=== PATIENT | male | born 1950 | race Caucasian/White ===

== ENCOUNTER 2018-02-03 21:24 | Emergency (ER) | payer OTHER ==
[2018-02-03] MEDS ORDERED: ACETAMINOPHEN 500 MG TAB ONE (21:36)
[2018-02-03] MEDS ORDERED: CETIRIZINE HCL 5 MG TABLET ONE (22:56)
[2018-02-03] MEDS ORDERED: ALBUTEROL 2.5 MG/3 ML NEB SOL ONE (22:56)
[2018-02-03] MEDS ORDERED: IPRATROPIUM BROM 0.5MG/2.5ML ONE (22:57)
[2018-02-04] MEDS ORDERED: IPRATROPIUM BROM 0.5MG/2.5ML ONE (00:04)
[2018-02-04] MEDS ORDERED: IBUPROFEN 400 MG TAB ONE (00:04)
[2018-02-04] MEDS ORDERED: ALBUTEROL 2.5 MG/3 ML NEB SOL ONE (00:04)
[2018-02-04] MEDS ORDERED: AZITHROMYCIN 250 MG TAB ONE (00:04)
[2018-02-04] MEDS ORDERED: CEFTRIAXONE/SWI 1gm 1 GM/10 ML SYR ONE (00:05)
[2018-02-04] MEDS ORDERED: predniSONE 20 MG TAB ONE (00:05)
[2018-02-04] MEDS ORDERED: NA CHLORIDE 0.9% 1,000 ML ONE ×2 (00:05→00:56)
[2018-02-04] MEDS ORDERED: LEVALBUTEROL 1.25 MG/3 ML NEB ONE (00:21)
[2018-02-04 00:24] LABS: Absolute Lymphocytes (CBC) 2.1 K/uL (0.7-4.9); Absolute Monocytes 0.7 K/uL (0.1-1.3); Absolute Neutrophil 7.8 K/uL (1.8-8.0); Basophils % 0.8 % (0-1.3); Eosinophils % 4.3 % (0-4.4); Hematocrit 42.3 % (39.6-49.0); Lymphocytes % 19.1 % (15.3-44.8); MCV 89.1 fL (80-100); MPV 8.9 fL (7.6-11.3); Monocytes % 6.2 % (3.3-12.3); RBC Red Blood Cell Count 4.75 M/uL (4.33-5.43)
[2018-02-04 00:31] LABS: Protime INR 1.1
[2018-02-04 00:44] LABS: Magnesium 1.7 mg/dL (1.8-2.5)
[2018-02-04 00:46] LABS: Potassium 3.5 mEq/L (3.6-5.0)
[2018-02-04] MEDS ORDERED: MAGNESIUM SULFATE 1 gm IVPB 1 GM/100 ML BAG IV ONE (00:51)
[2018-02-04 00:55] LABS: CKMB Creatine Kinase MB 1.5 ng/ml (0.3-4.0)
--- NOTE | 2018-02-04 02:40 | ER ---
Nurse's Notes [facility] Name: Cristiano Brewer Age: 67 yrs Sex: Male : 1950 Arrival Date: 02/03/2018 Time: 21:30 Bed 13 Private MD: Diagnosis: Acute upper respiratory infection, unspecified;Dehydration;Hypomagnesemia Presentation: 02/03 21:33 Presenting complaint: Patient states: For the last 4-5 days I have had a cough, itchy la1 throat. Today I was running fever at home and just feel bad. Transition of care: patient was not received from another setting of care. Resp Distress? No respiratory distress is noted at this time. Onset of symptoms was February 03, 2018. Initial Sepsis Screen: Does the patient meet any 2 criteria? Temp <36.0*C (96.8*F)) or > 38.3*C (100.4*F). No. Patient's initial sepsis screen is negative. Does the patient have a suspected source of infection?. Care prior to arrival: None. 21:33 Method Of Arrival: Ambulatory la1 21:33 Acuity: ILIA 3 la1 Historical: - Allergies: 21:34 No Known Allergies; la1 - Home Meds: 21:53 allopurinol 100 mg Oral tab 1 tab 3 times per day [Active]; aspirin 81 mg Oral TbEC 1 tl2 tab once daily [Active]; lisinopril 20 mg Oral tab 1 tab once daily [Active]; - PMHx: 21:34 CVA; Gout; Hypertension; la1 - Immunization history:: Adult Immunizations up to date. - Social history:: Smoking status: Patient/guardian denies using tobacco. - Family history:: not pertinent. - Hospitalizations: : No recent hospitalization is reported. - History obtained from: . Screenin:50 Abuse screen: Denies threats or abuse. Nutritional screening: No deficits noted. tl2 Tuberculosis screening: No symptoms or risk factors identified. Fall Risk None identified. Assessment: 21:50 General: Appears in no apparent distress. uncomfortable, Behavior is calm, cooperative, tl2 appropriate for age. General: Reports fever for 0-12 hours. Pain: Complains of pain in throat Pain does not radiate. Pain currently is 8 out of 10 on a pain scale. Quality of pain is described as sharp. Neuro: Level of Consciousness is awake, alert, obeys commands, Oriented to person, place, time, situation. Cardiovascular: Denies chest pain, Patient's skin is warm and dry. Respiratory: Reports cough that is pain with cough Airway is patent Respiratory effort is even, unlabored, Respiratory pattern is regular, symmetrical, Breath sounds are clear bilaterally. GI: No signs and/or symptoms were reported involving the gastrointestinal system. : No signs and/or symptoms were reported regarding the genitourinary system. Derm: Skin is pink, warm \T\ dry. 23:14 Reassessment: Patient appears in no apparent distress at this time. No changes from tl2 previously documented assessment. Patient and/or family updated on plan of care and expected duration. Pain level reassessed. Patient is alert, oriented x 3, equal unlabored respirations, skin warm/dry/pink. 02/04 00:27 Reassessment: Patient appears in no apparent distress at this time. Patient and/or tl2 family updated on plan of care and expected duration. Pain level reassessed. Patient is alert, oriented x 3, equal unlabored respirations, skin warm/dry/pink. pt HR 118, PA notified, new order replaced albuterol, see MAR. 01:35 Reassessment: Patient appears in no apparent distress at this time. Patient and/or tl2 family updated on plan of care and expected duration. Pain level reassessed. Patient is alert, oriented x 3, equal unlabored respirations, skin warm/dry/pink. Patient denies pain at this time. 02:48 Reassessment: Patient appears in no apparent distress at this time. Patient and/or tl2 family updated on plan of care and expected duration. Pain level reassessed. Patient is alert, oriented x 3, equal unlabored respirations, skin warm/dry/pink. Pt verbalized understanding of discharge instructions, need for follow up and prescription usage Patient states feeling better. Vital Signs: 02/03 21:35 BP 140 / 95; Pulse 100; Resp 16; Temp 101.1(TE); Pulse Ox 100% on R/A; Weight 134.26 la1 kg; Height 6 ft. 2 in. (187.96 cm); 22:44 BP 109 / 67; Pulse 107; Resp 18; Temp 99.2(O); Pulse Ox 94% on R/A; tl2 23:14 BP 123 / 76; Pulse 105; Resp 20; Pulse Ox 98% on Nebulizer Mask; tl2 02/04 00:00 BP 115 / 62; Pulse 114; Resp 20; Pulse Ox 95% on R/A; tl2 00:28 BP 101 / 60; Pulse 105; Resp 20; Temp 98.7(O); Pulse Ox 100% on Nebulizer Mask; tl2 00:59 BP 107 / 64; Pulse 119; Resp 20; Pulse Ox 97% on R/A; tl2 01:35 BP 117 / 70; Pulse 102; Resp 22; Pulse Ox 97% on R/A; tl2 02:10 BP 100 / 66; Pulse 96; Resp 18; Pulse Ox 94% on R/A; tl2 02:48 BP 122 / 44; Pulse 99; Resp 20; Pulse Ox 97% on R/A; tl2 02/03 21:35 Body Mass Index 38.00 (134.26 kg, 187.96 cm) la1 ED Course: 02/03 21:30 Patient arrived in ED. es 21:34 Triage completed. la1 21:35 Arm band placed on left wrist. la1 21:49 Leisa Hernandes, RN is Primary Nurse. tl2 21:50 Patient has correct armband on for positive identification. Bed in low position. Call tl2 light in reach. Side rails up X 1. Adult w/ patient. 22:14 Tatyana Mena FNP is PHCP. kav 22:14 Paolo Ye MD is Attending Physician. kav 23:27 X-ray completed. Portable x-ray completed in exam room. Patient tolerated procedure jw2 well. 23:28 CXR XRAY In Process Unspecified. EDMS 02/04 00:00 Inserted saline lock: 20 gauge in right antecubital area, using aseptic technique. tl2 Blood collected. placed by shweta Tarango. 00:03 Initial lab(s) drawn, by me, sent to lab. First set of blood cultures drawn by me. cc 01:33 CT Chest For PE Angio In Process Unspecified. EDMS 02:48 No provider procedures requiring assistance completed. IV discontinued, intact, tl2 bleeding controlled, No redness/swelling at site. Pressure dressing applied. Administered Medications: 02/03 21:37 Drug: Tylenol 1000 mg Route: PO; la1 22:30 Follow up: Response: No adverse reaction; Temperature is decreased tl2 23:15 Drug: DuoNeb (3:1) (2.5 mg - 0.5 mg) 3 ml Route: Nebulizer; tl2 02/04 00:00 Follow up: Response: No adverse reaction; Marked relief of symptoms tl2 02/03 23:15 Drug: Cetirizine 10 mg Route: PO; tl2 02/04 00:00 Follow up: Response: No adverse reaction tl2 02/03 23:15 Not Given (do not have): Oxymetazoline Drops (0.05 %) 2 sprays Intranasal once; 2 tl2 sprays each nostril 02/04 00:25 Drug: Rocephin - (cefTRIAXone) 1 grams Route: IVPB; Infused Over: 30 mins; Site: right tl2 antecubital; 02:50 Follow up: IV Status: Completed infusion tl2 00:25 Drug: AZITHromycin 500 mg Route: PO; tl2 02:50 Follow up: Response: No adverse reaction tl2 00:25 CANCELLED (do not have): ERYTHromycin Ointment 1 application Ophthalmic once; apply tl2 thin ribbon lower conjunctival sace both eyes 00:25 Drug: Ibuprofen 800 mg Route: PO; tl2 02:51 Follow up: Response: No adverse reaction tl2 00:26 Drug: NS 0.9% 1000 ml Route: IV; Rate: 1 bolus; Site: right antecubital; tl2 01:30 Follow up: IV Status: Completed infusion; IV Intake: 1000ml tl2 00:26 Drug: predniSONE 40 mg Route: PO; tl2 02:50 Follow up: Response: No adverse reaction tl2 00:26 CANCELLED (Other Intervention Used): DuoNeb (3:1) (2.5 mg - 0.5 mg) 3 ml Nebulizer once tl2 00:27 Drug: Xopenex (3) 1.25 mg Route: Inhalation; tl2 01:00 Drug: Magnesium Sulfate 1 grams Route: IVPB; Infused Over: 1 hrs; Site: right tl2 antecubital; 02:51 Follow up: IV Status: Completed infusion tl2 01:00 Drug: NS 0.9% 1000 ml Route: IV; Rate: 1 bolus; Site: right antecubital; tl2 02:51 Follow up: IV Status: Completed infusion; IV Intake: 1000ml tl2 Intake: 01:30 IV: 1000ml; Total: 1000ml. tl2 02:51 IV: 1000ml; Total: 2000ml. tl2 Outcome: 02:40 Discharge ordered by . ma2 02:48 Discharged to home ambulatory, with family. tl2 02:48 Condition: stable 02:48 Discharge instructions given to patient, Instructed on discharge instructions, follow up and referral plans. medication usage, Demonstrated understanding of instructions, follow-up care, medications, Prescriptions given X 3. 02:51 Patient left the ED. tl2 Signatures: Dispatcher [employer] EDTatyana Cardenas, ACADEMIC SERVICES PROFESSIONAL Naina Roque [place] cc Attema, Lee, RN RN sp1 La Miranda2 Leisa Hernandes RN RN tl2 Paolo Ye MD MD ma2 Corrections: (The following items were deleted from the chart) 00:28 00:28 BP 101 / 60; Pulse 105bpm; Resp 20bpm; Pulse Ox 100% Nebulizer Mask; tl2 tl2
--- NOTE | 2018-02-04 02:41 | EDPHYS ---
Physician Documentation [facility] Name: Cristiano Brewer Age: 67 yrs Sex: Male : 1950 Arrival Date: 02/03/2018 Time: 21:30 Bed 13 Private MD: ED Physician Paolo Ye HPI: 02/03 22:15 This 67 yrs old Male presents to ER via Ambulatory with complaints of kav Congestion, Fever, High Blood Pressure. 22:50 Onset: The symptoms/episode began/occurred acutely, 3 day(s) ago. Associated signs and kav symptoms: Pertinent positives: congestion, cough, fever, eyes tearing, Pertinent negatives: chest pain, earache. Modifying factors: The patient symptoms are alleviated by nothing, the patient symptoms are aggravated by coughing. The patient has not recently seen a physician. 22:53 The patient or guardian reports cough, that is intermittent, described as moderate, kav with productive sputum, that is yellow. 02/04 00:56 patient reports that patient had a cardiac workup with dr. Limon approximately 6 kav months ago for c/o chest pain and was told "... has a very healthy heart". patient denies chest pain on this visit to the er. Historical: - Allergies: 02/03 21:34 No Known Allergies; la1 - Home Meds: 21:53 allopurinol 100 mg Oral tab 1 tab 3 times per day [Active]; aspirin 81 mg Oral TbEC 1 tl2 tab once daily [Active]; lisinopril 20 mg Oral tab 1 tab once daily [Active]; - PMHx: 21:34 CVA; Gout; Hypertension; la1 - Immunization history:: Adult Immunizations up to date. - Social history:: Smoking status: Patient/guardian denies using tobacco. - Family history:: not pertinent. - Hospitalizations: : No recent hospitalization is reported. - History obtained from: . ROS: 22:54 Constitutional: Negative for fever, chills, and weight loss, ENT: Negative for injury, kav pain, and discharge, Neck: Negative for injury, pain, and swelling, Cardiovascular: Negative for chest pain, palpitations, and edema, Abdomen/GI: Negative for abdominal pain, nausea, vomiting, diarrhea, and constipation, Back: Negative for injury and pain, : Negative for injury, bleeding, discharge, and swelling, MS/Extremity: Negative for injury and deformity, Skin: Negative for injury, rash, and discoloration, Neuro: Negative for headache, weakness, numbness, tingling, and seizure, Psych: Negative for depression, anxiety, suicide ideation, homicidal ideation, and hallucinations, Allergy/Immunology: Negative for hives, rash, and allergies, Endocrine: Negative for neck swelling, polydipsia, polyuria, polyphagia, and marked weight changes, Hematologic/Lymphatic: Negative for swollen nodes, abnormal bleeding, and unusual bruising. 22:54 Eyes: Positive for tearing, Negative for blurry vision, itching, matting, pain. 22:54 Respiratory: Positive for cough, "sounds productive". Exam: 22:54 Constitutional: This is a well developed, well nourished patient who is awake, alert, kav and in no acute distress. Head/Face: Normocephalic, atraumatic. Eyes: Pupils equal round and reactive to light, extra-ocular motions intact. Lids and lashes normal. Conjunctiva and sclera are non-icteric and not injected. Cornea within normal limits. Periorbital areas with no swelling, redness, or edema. Neck: Trachea midline, no thyromegaly or masses palpated, and no cervical lymphadenopathy. Supple, full range of motion without nuchal rigidity, or vertebral point tenderness. No Meningismus. Chest/axilla: Normal chest wall appearance and motion. Nontender with no deformity. No lesions are appreciated. Cardiovascular: Regular rate and rhythm with a normal S1 and S2. No gallops, murmurs, or rubs. Normal PMI, no JVD. No pulse deficits. Abdomen/GI: Soft, non-tender, with normal bowel sounds. No distension or tympany. No guarding or rebound. No evidence of tenderness throughout. Back: No spinal tenderness. No costovertebral tenderness. Full range of motion. Skin: Warm, dry with normal turgor. Normal color with no rashes, no lesions, and no evidence of cellulitis. MS/ Extremity: Pulses equal, no cyanosis. Neurovascular intact. Full, normal range of motion. Neuro: Awake and alert, GCS 15, oriented to person, place, time, and situation. Cranial nerves II-XII grossly intact. Motor strength 5/5 in all extremities. Sensory grossly intact. Cerebellar exam normal. Normal gait. Psych: Awake, alert, with orientation to person, place and time. Behavior, mood, and affect are within normal limits. 22:54 ENT: Nose: Turbinates: are swollen bilaterally. 22:54 Respiratory: the patient does not display signs of respiratory distress, Respirations: prolonged exhalation, that is mild, Breath sounds: decreased breath sounds, that are moderate, are located in both bases. Vital Signs: 21:35 BP 140 / 95; Pulse 100; Resp 16; Temp 101.1(TE); Pulse Ox 100% on R/A; Weight 134.26 la1 kg; Height 6 ft. 2 in. (187.96 cm); 22:44 BP 109 / 67; Pulse 107; Resp 18; Temp 99.2(O); Pulse Ox 94% on R/A; tl2 23:14 BP 123 / 76; Pulse 105; Resp 20; Pulse Ox 98% on Nebulizer Mask; tl2 02/04 00:00 BP 115 / 62; Pulse 114; Resp 20; Pulse Ox 95% on R/A; tl2 00:28 BP 101 / 60; Pulse 105; Resp 20; Temp 98.7(O); Pulse Ox 100% on Nebulizer Mask; tl2 00:59 BP 107 / 64; Pulse 119; Resp 20; Pulse Ox 97% on R/A; tl2 01:35 BP 117 / 70; Pulse 102; Resp 22; Pulse Ox 97% on R/A; tl2 02:10 BP 100 / 66; Pulse 96; Resp 18; Pulse Ox 94% on R/A; tl2 02:48 BP 122 / 44; Pulse 99; Resp 20; Pulse Ox 97% on R/A; tl2 02/03 21:35 Body Mass Index 38.00 (134.26 kg, 187.96 cm) la1 MDM: 02/03 22:14 Patient medically screened. kav 22:54 Data reviewed: vital signs, nurses notes. kav 23:48 ED course: airway is much improved with respiratory treatment. kav 02/04 01:40 Transition of care: After a detail discussion of the patient's case, care is kav transferred to Paolo Ye MD. 02:14 Data reviewed: vital signs, nurses notes. Transition of care:. ma2 02:39 Differential diagnosis: viral Infection, bacterial infection, URI, bronchitis, ma2 pneumonia. Counseling: I had a detailed discussion with the patient and/or guardian regarding: the historical points, exam findings, and any diagnostic results supporting the discharge/admit diagnosis, the presence of at least one elevated blood pressure reading (>120/80) during this emergency department visit, the need for outpatient follow up. ED course: CT unremarkable however patient has fever and HR of 96 will send him home on z-pack and he will see his pcp in 1 day . 02/04 00:02 Order name: Blood Culture Adult (2) 02/04 00:02 Order name: BNP; Complete Time: 01:00 02/04 00:02 Order name: CBC with Diff; Complete Time: 00:47 02/04 00:02 Order name: Magnesium; Complete Time: 00:47 02/04 00:02 Order name: PT-INR; Complete Time: 00:47 02/04 00:02 Order name: Ptt, Activated; Complete Time: 00:47 02/04 00:02 Order name: Troponin (emerg Dept Use Only); Complete Time: 01:00 02/04 00:02 Order name: Lactic Dehydrogenase; Complete Time: 00:47 02/04 00:15 Order name: Procalcitonin; Complete Time: 01:00 cc 02/04 00:24 Order name: BMP 02/04 00:24 Order name: Basic Metabolic Panel; Complete Time: 01:00 EDMS 02/04 00:25 Order name: CK; Complete Time: 01:00 02/04 00:25 Order name: Ckmb; Complete Time: 01:00 02/04 00:29 Order name: Lactate; Complete Time: 00:47 em1 02/03 22:50 Order name: CXR XRAY 02/04 01:03 Order name: CT Chest For PE Angio 02/03 23:48 Order name: VS Recheck; Complete Time: 00:01 02/04 00:02 Order name: Cardiac monitoring; Complete Time: 00:15 02/04 00:02 Order name: EKG - Nurse/Tech; Complete Time: 00:24 02/04 00:02 Order name: IV Saline Lock; Complete Time: 00:13 /22 00:02 Order name: Labs collected and sent; Complete Time: 00:v 02/04 00:02 Order name: O2 Per Protocol; Complete Time: 00:v 02/04 00:02 Order name: O2 Sat Monitoring; Complete Time: 00: kav Administered Medications: 02/03 21:37 Drug: Tylenol 1000 mg Route: PO; la1 22:30 Follow up: Response: No adverse reaction; Temperature is decreased tl2 23:15 Drug: DuoNeb (3:1) (2.5 mg - 0.5 mg) 3 ml Route: Nebulizer; tl2 02/04 00:00 Follow up: Response: No adverse reaction; Marked relief of symptoms tl2 02/03 23:15 Drug: Cetirizine 10 mg Route: PO; tl2 02/04 00:00 Follow up: Response: No adverse reaction tl2 02/03 23:15 Not Given (do not have): Oxymetazoline Drops (0.05 %) 2 sprays Intranasal once; 2 tl2 sprays each nostril 02/04 00:25 Drug: Rocephin - (cefTRIAXone) 1 grams Route: IVPB; Infused Over: 30 mins; Site: right tl2 antecubital; 02:50 Follow up: IV Status: Completed infusion tl2 00:25 Drug: AZITHromycin 500 mg Route: PO; tl2 02:50 Follow up: Response: No adverse reaction tl2 00:25 CANCELLED (do not have): ERYTHromycin Ointment 1 application Ophthalmic once; apply tl2 thin ribbon lower conjunctival sace both eyes 00:25 Drug: Ibuprofen 800 mg Route: PO; tl2 02:51 Follow up: Response: No adverse reaction tl2 00:26 Drug: NS 0.9% 1000 ml Route: IV; Rate: 1 bolus; Site: right antecubital; tl2 01:30 Follow up: IV Status: Completed infusion; IV Intake: 1000ml tl2 00:26 Drug: predniSONE 40 mg Route: PO; tl2 02:50 Follow up: Response: No adverse reaction tl2 00:26 CANCELLED (Other Intervention Used): DuoNeb (3:1) (2.5 mg - 0.5 mg) 3 ml Nebulizer once tl2 00:27 Drug: Xopenex (3) 1.25 mg Route: Inhalation; tl2 01:00 Drug: Magnesium Sulfate 1 grams Route: IVPB; Infused Over: 1 hrs; Site: right tl2 antecubital; 02:51 Follow up: IV Status: Completed infusion tl2 01:00 Drug: NS 0.9% 1000 ml Route: IV; Rate: 1 bolus; Site: right antecubital; tl2 02:51 Follow up: IV Status: Completed infusion; IV Intake: 1000ml tl2 Disposition: 02:41 Co-signature as Attending Physician, Paolo Ye MD. ma2 Disposition: 02/04/18 02:40 Discharged to Home. Impression: Acute upper respiratory infection, unspecified, Dehydration, Hypomagnesemia. - Condition is Stable. - Discharge Instructions: Dehydration, Adult, Hypomagnesemia, Upper Respiratory Infection, Adult, Upper Respiratory Infection, Pediatric. - Prescriptions for Zithromax Z- Luis Carlos 250 mg Oral Tablet - take 1 tablet by ORAL route as directed for 5 days Day 1 - take two (2) tablets one time. Day 2, 3, 4 , 5 take one (1) tablet once daily.; 6 tablet. Medrol (Luis Carlos) 4 mg Oral Tablets, Dose Pack - take 1 tablet by ORAL route as directed - follow package instructions; 1 packet. benzonatate 100 mg Oral Capsule - take 1 capsule by ORAL route 3 times per day; 30 capsule. - Medication Reconciliation Form, Thank You Letter, Antibiotic Education, Prescription Opioid Use form. - Follow up: Private Physician; When: 1 - 2 days; Reason: If symptoms return, Recheck today's complaints, Continuance of care, Re-evaluation by your physician. - Problem is new. - Symptoms have improved. Signatures: Dispatcher [employer] Tatyana Frank, PLUCK SEPARATOR PLUCK SEPARATOR Roshan Marcus RN RN la1 Leisa Hernandes RN RN tl2 Paolo Ye MD MD ma2 Corrections: (The following items were deleted from the chart) 00:25 02/03 23:52 ERYTHromycin Ointment 1 application Ophthalmic once; apply thin ribbon tl2 lower conjunctival sace both eyes ordered. ka 02/04 00:26 02/03 23:55 DuoNeb (3:1) (2.5 mg - 0.5 mg) 3 ml Nebulizer once ordered. kav tl2
[2018-02-04 03:04] VITALS: TEMP 98.7
[2018-02-04 03:08] VITALS: BP 122/44; O2SAT 97
--- NOTE | 2018-02-04 11:47 | RAD REPORT ---
EXAM DESCRIPTION: CT - Chest For Pe Angio - 02/04/2018 6:54 am CLINICAL HISTORY: Chest pain. COMPARISON: None. TECHNIQUE: CT angiogram of the pulmonary arteries was performed with MIP. All CT scans are performed using dose optimization technique as appropriate and may include automated exposure control or mA/KV adjustment according to patient size. FINDINGS: No evidence of proximal pulmonary thromboembolism. Distal branch assessment is limited by respiratory motion artifact. No acute aortic finding demonstrated. Mild linear atelectasis is present in both lung bases. No focal infiltrate detected. No significant pericardial or pleural fluid. No concerning bony finding. Small hiatal hernia. IMPRESSION: No evidence of pulmonary thromboembolism. Mild linear atelectasis in both lung bases.
--- NOTE | 2018-02-04 11:49 | RAD REPORT ---
EXAM DESCRIPTION: RAD - Chest Single View - 02/03/2018 11:29 pm CLINICAL HISTORY: Chest pain. COMPARISON: 08/18/2017 FINDINGS: Portable technique limits examination quality. The lungs are grossly clear. The heart is normal in size. No displaced fractures. IMPRESSION: No acute intrathoracic process suspected.
--- NOTE | 2018-02-04 12:03 | EKG ---
Test Date: 2018-02-04 Test Time: 00:18:44 Laundry Housekeeping Aide: ARTURO MEASUREMENT RESULTS: Intervals: Rate: 109 AZ: 238 QRSD: 96 QT: 306 QTc: 412 Garvin: P: 43 AZ: 238 QRS: -61 T: 35 INTERPRETIVE STATEMENTS: Sinus tachycardia with 1st degree AV block Left axis deviation Inferior infarct, age undetermined Abnormal ECG Compared to ECG 03/23/2015 06:25:12 Left-axis deviation now present Myocardial infarct finding now present Sinus rhythm no longer present Electronically Signed On 02-04-18 12:03:15 CDT by Dmitriy Forrest
== END 2018-02-04 02:51 | disposition home or self-care (01) ==
LOC: ER 21:24
DX: J06.9 Acute upper respiratory infection, unspecified (principal); E86.0 Dehydration; E83.42 Hypomagnesemia; I10 Essential (primary) hypertension; Z86.73 Personal history of transient ischemic attack (TIA), and cerebral infarction without residual deficits; Z79.82 Long term (current) use of aspirin
CPT/HCPCS: 36415; 71045; 71275; 80048; 82550; 82553; 83605; 83615; 83735; 83880; 84145; 84484; 85025; 85610; 85730; 87040 ×2; 93005; 94640; 96365; 99284; J0696; J3475; J7030 ×2; Q9967; J7512

== ENCOUNTER 2018-04-05 17:04 | Emergency (ER) | payer OTHER ==
--- NOTE | 2018-04-05 18:09 | RAD REPORT ---
EXAM DESCRIPTION: RAD - Tib Fib Left - 04/05/2018 5:59 pm CLINICAL HISTORY: Fall from ladder, ankle and leg pain COMPARISON: None. FINDINGS: No fracture is identified. There is no dislocation or periosteal reaction noted. No pathol ogic bone process. Contusion and edema changes are evident. Patient has severe degenerative change at the ankle joint. Tibiotalar joint space narrowing is present with large marginal spurs. There is bon e hypertrophy along the anterior superior margin of the talus. Subtalar joint space is also narrowed. Patient has a very large plantar spur and in the small Achilles spur. Midfoot degenerative changes a re present. Bony hypertrophy and spurring changes are present at both the medial and lateral malleola r I. No foreign body or other soft tissue abnormality. IMPRESSION: No tibia or fibula fracture identified. Severe ankle joint degenerative change present further detailed on separate ankle report.
--- NOTE | 2018-04-05 18:12 | RAD REPORT ---
EXAM DESCRIPTION: RAD - Ankle Left 3 View - 04/05/2018 5:59 pm CLINICAL HISTORY: Fall from ladder, ankle pain COMPARISON: None. FINDINGS: No fracture, dislocation or periosteal reaction. No joint effusion seen. Severe degenerati ve changes involve the ankle joint and midfoot. There is significant tibiotalar joint space narrowing . There are sclerotic changes seen with large marginal spurs. There is prominent spurring along the a nterior superior margin of the talus. Subtalar joint space is narrowed primarily along the posterior margin where there are marginal spurs. Midfoot degenerative spurring is present only partially imaged on ankle examination. Patient has prominent hypertrophy around the medial and lateral malleoli. Soft tissue swelling is present. Patient has a large plantar spur and small Achilles spur. No air or fore ign body in the soft tissues. IMPRESSION: Patient has severe ankle joint degenerative change with surrounding soft tissue edema. No fracture or acute finding.
--- NOTE | 2018-04-05 19:12 | EDPHYS ---
Physician Documentation [facility] Name: Cristiano Brewer Age: 67 yrs Sex: Male : 1950 Arrival Date: 04/05/2018 Time: 17:08 Bed 20 Private MD: ED Physician Dexter Quintanilla HPI: 04/05 17:40 This 67 yrs old Male presents to ER via Ambulatory with complaints of left rn leg pain. 17:40 The patient presents with an injury, pain, that is acute. The complaints affect the rn left gutierrez. Onset: The symptoms/episode began/occurred 3 day(s) ago. Modifying factors: The symptoms are alleviated by nothing. the symptoms are aggravated by weight bearing. Severity of symptoms: At their worst the symptoms were mild, in the emergency department the symptoms are unchanged. The patient has not experienced similar symptoms in the past. Reports left leg pain after injury climbing pool ladder, pain initially but swelling worse, hurts to put weight on leg, doesn't feel broken, feels sharp pain with touching skin, has been walking around but hurts. No fever. No hx of dvt. . Historical: - Allergies: 17:20 No Known Allergies; sg - Home Meds: 17:20 lisinopril 20 mg Oral tab 1 tab once daily [Active]; aspirin 81 mg Oral TbEC 1 tab once sg daily [Active]; allopurinol 100 mg Oral tab 1 tab 3 times per day [Active]; - PMHx: 17:20 CVA; Gout; Hypertension; sg - PSHx: 17:20 Back Sx; Left Leg Sx; Hand Sx; sg - Immunization history:: Adult Immunizations up to date, Last tetanus immunization: up to date. - Social history:: Smoking status: Patient/guardian denies using tobacco. - Ebola Screening: : Patient negative for fever greater than or equal to 101.5 degrees Fahrenheit, and additional compatible Ebola Virus Disease symptoms Patient denies exposure to infectious person Patient denies travel to an Ebola-affected area in the 21 days before illness onset No symptoms or risks identified at this time. - Family history:: not pertinent. - Hospitalizations: : No recent hospitalization is reported. ROS: 17:40 Constitutional: Negative for fever, chills, and weight loss, Eyes: Negative for injury, rn pain, redness, and discharge, Neck: Negative for injury, pain, and swelling, Cardiovascular: Negative for chest pain, palpitations, and edema, Respiratory: Negative for shortness of breath, cough, wheezing, and pleuritic chest pain, Abdomen/GI: Negative for abdominal pain, nausea, vomiting, diarrhea, and constipation, MS/Extremity: + injury, no deformity Skin: + warmth to leg Neuro: Negative for headache, weakness, numbness, tingling, and seizure. Exam: 17:40 Constitutional: This is a well developed, well nourished patient who is awake, alert, rn and in no acute distress. Skin: warmth to LLE, no streaking, no abscess/fluctuance MS/ Extremity: Pulses equal, no cyanosis. Neurovascular intact. LLE with mild swelling, + blanching erythema and warmth of pre-tibial area down to ankle, no calf tenderness, + FROM at knee. + mild painful ROM at left ankle. No deformity. Vital Signs: 17:20 Pulse 74; Resp 17; Temp 98.8(TE); Pulse Ox 100% on R/A; Weight 135.17 kg; Height 6 ft. sg 1 in. (185.42 cm); Pain 7/10; 17:22 BP 136 / 85; sg 19:23 BP 140 / 72; Pulse 67; Resp 16; Pulse Ox 99% on R/A; rv 17:20 Body Mass Index 39.32 (135.17 kg, 185.42 cm) sg MDM: 17:32 Patient medically screened. rn 18:14 Differential diagnosis: closed fracture, contusion. Differential diagnosis: cellulitis. rn Data reviewed: vital signs, nurses notes. Counseling: I had a detailed discussion with the patient and/or guardian regarding: the historical points, exam findings, and any diagnostic results supporting the discharge/admit diagnosis, radiology results, the need for outpatient follow up, to return to the emergency department if symptoms worsen or persist or if there are any questions or concerns that arise at home. Special discussion: I discussed with the patient/guardian in detail that at this point there is no indication for admission to the hospital. It is understood, however, that if the symptoms persist or worsen the patient needs to return immediately for re-evaluation. 04/05 17:37 Order name: XRAY Tib Fib LEFT; Complete Time: 18:14 rn 04/05 17:37 Order name: XRAY Ankle LEFT 3 view; Complete Time: 18:14 rn 04/05 18:28 Order name: Extremity Venous Uni Ltd ; Complete Time: 19:26 rn Administered Medications: 19:38 Drug: Hydrocodone-Acetaminophen (7.5 mg-325 mg) 1 tabs Route: PO; rv 19:38 Follow up: Response: Medication administered at discharge. rv Disposition: 04/05/18 19:11 Discharged to Home. Impression: Cellulitis of left lower limb, Contusion of left lower leg. - Condition is Stable. - Discharge Instructions: Contusion, Cellulitis. - Prescriptions for Clindamycin HCl 300 mg Oral Capsule - take 1 capsule by ORAL route every 6 hours for 10 days; 40 capsule. Tylenol- Codeine #3 300-30 mg Oral Tablet - take 2 tablet by ORAL route every 6 hours As needed; 20 tablet. Bactrim DS 800- 160 mg Oral Tablet - take 1 tablet by ORAL route every 12 hours for 10 days; 20 tablet. - Medication Reconciliation Form, Thank You Letter, Antibiotic Education, Prescription Opioid Use form. - Follow up: Private Physician; When: 2 - 3 days; Reason: Recheck today's complaints, Re-evaluation by your physician. - Problem is new. - Symptoms have improved. Signatures: Dispatcher [employer] EDMS Chago Duenas RN Dexter Osman MD MD rn Roszak, Josh, PA PA jr8 Erlin Lala RN RN rv Corrections: (The following items were deleted from the chart) 18:26 17:40 Constitutional: This is a well developed, well nourished patient who is awake, rn alert, and in no acute distress. Skin: warmth to LLE, no streaking, no abscess/fluctuance MS/ Extremity: Pulses equal, no cyanosis. Neurovascular intact. LLE with mild swelling, + blanching erythema and warmth of pre-tibial area down to ankle, no calf tenderness, + FROM at knee. + mild painful ROM at left ankle. No deformity. rn 19:48 19:11 04/05/2018 19:11 Discharged to Home. Impression: Cellulitis of left lower limb; rv Contusion of left lower leg. Condition is Stable. Discharge Instructions: Contusion, Cellulitis. Prescriptions for Clindamycin HCl 300 mg Oral Capsule - take 1 capsule by ORAL route every 6 hours for 10 days; 40 capsule, Tylenol-Codeine #3 300-30 mg Oral Tablet - take 2 tablet by ORAL route every 6 hours As needed; 20 tablet, Bactrim DS 800-160 mg Oral Tablet - take 1 tablet by ORAL route every 12 hours for 10 days; 20 tablet. and Forms are Medication Reconciliation Form, Thank You Letter, Antibiotic Education, Prescription Opioid Use. Follow up: Private Physician; When: 2 - 3 days; Reason: Recheck today's complaints, Re-evaluation by your physician. Problem is new. Symptoms have improved. jr8
--- NOTE | 2018-04-05 19:12 | ER ---
Nurse's Notes [facility] Name: Cristiano Brewer Age: 67 yrs Sex: Male : 1950 Arrival Date: 04/05/2018 Time: 17:08 Bed 20 Private MD: Diagnosis: Cellulitis of left lower limb;Contusion of left lower leg Presentation: 04/05 17:17 Presenting complaint: Patient states: Left gutierrez and ankle pain after a fall from a sg ladder climbing into the pool three days ago, pt reports the pain has not yet gone away, still swollen. Transition of care: patient was not received from another setting of care. Onset of symptoms was April 03, 2018. Risk Assessment: Do you want to hurt yourself or someone else? Patient reports no desire to harm self or others. Initial Sepsis Screen: Does the patient meet any 2 criteria? No. Patient's initial sepsis screen is negative. Does the patient have a suspected source of infection? No. Patient's initial sepsis screen is negative. Care prior to arrival: None. 17:17 Method Of Arrival: Ambulatory sg 17:17 Acuity: ILIA 3 sg Historical: - Allergies: 17:20 No Known Allergies; sg - Home Meds: 17:20 lisinopril 20 mg Oral tab 1 tab once daily [Active]; aspirin 81 mg Oral TbEC 1 tab once sg daily [Active]; allopurinol 100 mg Oral tab 1 tab 3 times per day [Active]; - PMHx: 17:20 CVA; Gout; Hypertension; sg - PSHx: 17:20 Back Sx; Left Leg Sx; Hand Sx; sg - Immunization history:: Adult Immunizations up to date, Last tetanus immunization: up to date. - Social history:: Smoking status: Patient/guardian denies using tobacco. - Ebola Screening: : Patient negative for fever greater than or equal to 101.5 degrees Fahrenheit, and additional compatible Ebola Virus Disease symptoms Patient denies exposure to infectious person Patient denies travel to an Ebola-affected area in the 21 days before illness onset No symptoms or risks identified at this time. - Family history:: not pertinent. - Hospitalizations: : No recent hospitalization is reported. Screenin:00 Abuse screen: Denies threats or abuse. Denies injuries from another. Nutritional jl7 screening: No deficits noted. Tuberculosis screening: No symptoms or risk factors identified. Fall Risk None identified. Assessment: 18:00 General: Appears in no apparent distress. uncomfortable, Behavior is calm, cooperative, jl7 appropriate for age. Pain: Complains of pain in lateral aspect of left calf Pain radiates to left leg Pain currently is 10 out of 10 on a pain scale. Quality of pain is described as shooting, Pain began 2-3 days ago. Is continuous, Aggravated by weight bearing. Neuro: Level of Consciousness is awake, alert, obeys commands, Oriented to person, place, time, situation. Cardiovascular: Patient's skin is warm and dry. Respiratory: Airway is patent Respiratory effort is even, unlabored, Respiratory pattern is regular, symmetrical. GI: No signs and/or symptoms were reported involving the gastrointestinal system. : No signs and/or symptoms were reported regarding the genitourinary system. EENT: No signs and/or symptoms were reported regarding the EENT system. Derm: Skin is pink, warm \T\ dry. Musculoskeletal: Swelling present in lateral aspect of left calf, left calf and left gutierrez. 18:25 Reassessment: Dr. Quintanilla at bedside discussing plan of care. jl7 19:22 Reassessment: Patient is alert, oriented x 3, equal unlabored respirations, skin rv warm/dry/pink. PATIENT JUST CAME BACK FROM THE RADIOLOGY. AWAITING RESULTS. COMPLAINING OF PAIN IN RIGHT LEG. HOOKED BACK TO MONITOR. VITAL SIGNS ARE WITHIN NORMAL LIMITS. 19:47 Reassessment: patient discharged. discharge instrctions given. rv Vital Signs: 17:20 Pulse 74; Resp 17; Temp 98.8(TE); Pulse Ox 100% on R/A; Weight 135.17 kg; Height 6 ft. sg 1 in. (185.42 cm); Pain 7/10; 17:22 BP 136 / 85; sg 19:23 BP 140 / 72; Pulse 67; Resp 16; Pulse Ox 99% on R/A; rv 17:20 Body Mass Index 39.32 (135.17 kg, 185.42 cm) sg ED Course: 17:08 Patient arrived in ED. as 17:19 Triage completed. sg 17:19 Arm band placed on. sg 17:32 Dexter Quintanilla MD is Attending Physician. rn 17:51 X-ray completed. Portable x-ray completed in exam room. Patient tolerated procedure bb2 well. 17:55 XRAY Tib Fib LEFT In Process Unspecified. EDMS 17:55 XRAY Ankle LEFT 3 view In Process Unspecified. EDMS 18:00 Patient has correct armband on for positive identification. Bed in low position. Call nataly light in reach. Side rails up X 1. 18:28 Ozzie Jennings, RN is Primary Nurse. nataly 18:53 Jose L High PA is PHCP. jr8 19:00 Report given to ACOSTA Mcgowan. jl7 19:12 Extremity Venous Uni Ltd US In Process Unspecified. EDMS 19:46 No provider procedures requiring assistance completed. Patient did not have IV access rv during this emergency room visit. Administered Medications: 19:38 Drug: Hydrocodone-Acetaminophen (7.5 mg-325 mg) 1 tabs Route: PO; rv 19:38 Follow up: Response: Medication administered at discharge. rv Outcome: 19:11 Discharge ordered by . jr8 19:46 Discharged to home ambulatory. rv 19:46 Condition: good 19:46 Discharge instructions given to patient, Instructed on discharge instructions, medication usage. 19:48 Patient left the ED. rv Signatures: Dispatcher [employer] EDMS Chago Duenas, RN RN Brissa Burton Roman, MD MD rn Roszak, Josh, PA PA jrOzzie Baez, RN Thea Arroyo bbErlin Garcia RN RN rv
--- NOTE | 2018-04-05 19:18 | RAD REPORT ---
EXAM DESCRIPTION: VAS - Extremity Venous Uni Ltd - 04/05/2018 7:12 pm CLINICAL HISTORY: Left leg pain and swelling COMPARISON: None. TECHNIQUE: Real-time sonographic evaluation of the left lower extremity deep venous system was perfo rmed. FINDINGS: Normal compressibility, flow augmentation, phasic flow and spontaneous flow are identified in the left lower extremity deep venous system. No intraluminal filling defects seen. IMPRESSION: No DVT in the left lower extremity.
[2018-04-05] MEDS ORDERED: HYDROCODONE/APAP 7.5/325 MG TAB ONE (19:26)
[2018-04-05 19:57] VITALS: TEMP 98.8
[2018-04-05 20:00] VITALS: BP 140/72; O2SAT 99
== END 2018-04-05 19:48 | disposition home or self-care (01) ==
LOC: ER 17:04
DX: S80.12XA Contusion of left lower leg, initial encounter (principal); Y93.39 Activity, other involving climbing, rappelling and jumping off; Y93.11 Activity, swimming; Y92.017 Garden or yard in single-family (private) house as the place of occurrence of the external cause; Z86.73 Personal history of transient ischemic attack (TIA), and cerebral infarction without residual deficits; M10.9 Gout, unspecified; I10 Essential (primary) hypertension; L03.116 Cellulitis of left lower limb
CPT/HCPCS: 93971; 99283